=== PATIENT | female | born 1945 | race Caucasian/White ===

== ENCOUNTER 2018-04-20 12:47 | Inpatient (IN) ==
[2018-04-20] MEDS ORDERED: (Diclofenac Sodium [Voltaren] 1 APPL) TP PRN (17:45)
[2018-04-20] MEDS ORDERED: *HR* Heparin 5,000 UNIT/ML VIAL SQ SCH (18:00)
[2018-04-20] MEDS: *HR* LORazepam 1 MG TABLET PO PRN (18:27)
[2018-04-20] MEDS: *HR* OxyCODONE/APAP 7.5/325 TABLET PO PRN (18:28)
[2018-04-20] MEDS ORDERED: *HR* OxyCODONE/APAP 7.5/325 TABLET PO SCH (20:00)
[2018-04-20] MEDS: Ibuprofen 200 MG TABLET PO PRN (21:22)
[2018-04-20] MEDS: Latanoprost 2.5 ML BOTTLE LEFT EYE SCH (21:27)
[2018-04-21] MEDS: *HR* OxyCODONE/APAP 7.5/325 TABLET PO PRN ×2 (04:50→08:27)
[2018-04-21] MEDS: Ibuprofen 200 MG TABLET PO PRN (08:25)
[2018-04-21] MEDS: *HR* LORazepam 1 MG TABLET PO PRN ×2 (08:25→21:22)
[2018-04-21] MEDS: Multivit/Ca/Min/Fe/FA 1 TAB TABLET PO SCH (08:28)
[2018-04-21] MEDS: *HR* Heparin 5,000 UNIT/ML VIAL SQ SCH ×2 (08:28→21:22)
[2018-04-21 08:39] LABS: Basophils # 0.1 K/mcL (0.0-0.2); Basophils % 0.6 %; Eosinophils # 0.4 K/mcL (0.0-0.6); Eosinophils % 3.7 %; Hematocrit 36.8 % (35.3-44.9); Immature Granulocytes % 0.7 % (0-4); Lymphocytes # 2.1 K/mcL (0.6-4.6); Lymphocytes % 21.3 %; Mean Corpuscular HGB Conc 32.6 g/dL (31.6-35.5); Mean Corpuscular Hemoglobin 30.6 pg (28.0-33.3); Mean Corpuscular Volume 93.9 fL (83.0-100.0); Mean Platelet Volume 10.6 fL (9.4-12.4); Monocytes # 0.8 K/mcL (0.0-1.3); Monocytes % 8.1 %; Neutrophils # 6.4 K/mcL (1.6-8.9); Platelet Count 259 K/mcL (140-400); Red Blood Count 3.92 M/mcL (3.82-4.97); Red Cell Distribution Width 12.7 % (11.5-14.5); Segmented Neutrophils % 65.6 %
[2018-04-21 08:41] LABS: BUN/Creatinine Ratio 18 (6-26); Blood Urea Nitrogen 13 mg/dL (8-23); Calcium 9.7 mg/dL (8.6-10.3); Carbon Dioxide 22 mEq/L (23-29); Chloride 101 mEq/L (98-107); Glucose 115 mg/dL (70-105); Osmolality,Calculated 281 (280-300); Potassium 3.7 mEq/L (3.5-5.1); Sodium 135 mEq/L (136-145); eGFR For African Americans > 60 (> 60); eGFR For Non-African Americans > 60 (> 60)
[2018-04-21 08:47] LABS: INR 1.2; Prothrombin Time 12.9 Seconds (9.4-12.1)
[2018-04-21 08:49] LABS: Activated Partial Thrombo Time 50.3 Seconds (26.0-36.0)
[2018-04-21] MEDS ORDERED: tiZANidine 4 MG TABLET PO PRN (11:56)
--- NOTE | 2018-04-21 12:04 | Internal Med History&Physical ---
Date of Encounter: 04/21/18 Time of Encounter: 11:20 Assessment and Plan (1) Status post lumbar spinal fusion Current visit: No Status: Acute We will proceed with therapies, returned to function as possible. Because of her risk of DVT, will use only heparin subcutaneous, as she is 3 days out from surgery upon admission. In addition, will have her take tizanidine for spasm and see if that helps. Because she was on 7.5 of oxycodone at home, will increase her dose, transiently. (2) Fibromyalgia Current visit: Yes Status: Acute Chronic and apparently at baseline. (3) Glaucoma, left eye Current visit: Yes Status: Acute Qualifiers: Glaucoma type: unspecified Qualified Code(s): H40.9 - Unspecified glaucoma (4) GERD (gastroesophageal reflux disease) Current visit: Yes Status: Acute We will continue home medications. Symptomatic treatment, as needed Qualifiers: Esophagitis presence: without esophagitis Qualified Code(s): K21.9 - Gastro -esophageal reflux disease without esophagitis (5) Status post total left knee replacement Current visit: Yes Status: Acute Apparently, stable. (6) COPD (chronic obstructive pulmonary disease) Current visit: Yes Status: Acute As above, patient carries this diagnosis but it is questionable. No current findings or issues. Qualifiers: COPD type: unspecified COPD Qualified Code(s): J44.9 - Chronic obstructive pulmonary disease, unspecified Internal Medicine - H&P: HPI Admitted From: Hospital to Hospital Transfer Plans for Post Hospital Care: Home History of present illness: Ms. Sands is a 72 year old female who has had left knee pain for over a year. She had left total knee replacement in February 2017 but this really did not help her symptoms, adequately. She was found to have lumbar stenosis and nerve impingement. For this reason, she underwent steroid injections which failed to relieve her symptoms. With this in mind, she underwent lumbar sacral repair and is here for physical therapy, rehabilitation to return to function. She was noted to be using Percocet 7.5/325, 1 every 4 hours at home, prior to surgery. She states that her pain is severe in her low back, often reaching 9 or 10. Spasm will involve her low back and comes, with pain often in 8-10 range. The left knee is better often in the 4/10 range. He denies bladder problems prior to surgery. However, she has urinary frequency, postoperatively. She has had intermittent constipation and diarrhea for several months prior to surgery. This is persistent as constipation, postoperatively. She has not had a bowel movement since before surgery. Melanoma which is to be evaluated but has been concerned about getting her spine taking care of, first. This is unchanged, recently. She knows of no associated anemia, lightheadedness or dizziness, etc. Past Med Surg Social Fam HX - Past Medical History Source: patient, old records reviewed Medical history: COPD, GERD, glaucoma, TIA Additional medical history: fibromyalgia Psychiatric history: anxiety, depression - Past Surgical History Surgical History: cataract, hysterectomy Additional surgical history: lowback. right fibula. left knee repl - Social History Smoking Status: Never smoker Smokeless Tobacco Status: No Alcohol use: none Drug use: none - Family History Sister Hx Family Respiratory Disorders: Yes (COPD) Father Hx Family Respiratory Disorders: Yes (COPD) Internal Medicine - H&P: Meds Duloxetine HCl [Cymbalta] 60 mg PO DAILY 09/14/17 [History] LORazepam [Ativan] 1 mg PO BID PRN 09/14/17 [History] Latanoprost [Xalatan] 1 drop LEFT EYE HS 09/14/17 [History] Pantoprazole Sodium 40 mg PO DAILY 09/14/17 [History] Diclofenac Sodium [Voltaren] 1 appl TP DAILY PRN 04/17/18 [History] Ibuprofen [Motrin Ib] 200 mg PO DAILY PRN 04/17/18 [History] Mv,Calcium,Min/Iron/Folic/Vitk [Multi For Her Tablet] 1 tab PO DAILY 04/17/18 [ History] OxyCODONE/APAP 7.5/325 [Percocet 7.5/325 MG] 1 tab PO QID 04/17/18 [History] Simvastatin [Zocor] 20 mg PO QPM 04/17/18 [History] OxyCODONE/APAP 7.5/325 [Percocet 7.5/325 MG] 1 each PO Q6HR PRN 3 Days #12 tablet 04/20/18 [Rx] 3 Allergy/AdvReac Type Severity Reaction Status Date / Time ciprofloxacin [From Cipro] AdvReac Swelling Verified 04/17/18 07:22 of Lip/Tongue/Throat Sulfa (Sulfonamide AdvReac Itching Verified 04/17/18 07:22 Antibiotics) All Systems PM: She has glaucoma involving her left eye and takes nightly drops for same. She is edentulous and wears full upper and lower plate dentures. She has frequent urinary tract infections but has no recent urinary burning. She has noted urinary frequency, as above. COPD was diagnosed in [place] but a [facility] it applications analyst said this diagnosis is in question. The patient has a 40 packher smoking history but has not smoked for at least 18 years. Patient has no complaint of chest discomfort, dyspnea, orthopnea, breathing problems, palpitations, nausea or vomiting, constipation or diarrhea, other changes in bowel habits, heartburn, difficulty with urination, kidney problems or kidney stones, fevers chills or sweats, rash or itching, seizures, headache or lightheadedness, heat or cold intolerance, blood problems or anemia, or other new complaints, except as mentioned above. Review of systems is otherwise negative. - Constitutional Vitals: Temp Pulse Resp BP Pulse Ox 98.3 F 90 19 147/81 95 04/21/18 08:00 04/21/18 08:00 04/21/18 08:00 04/21/18 08:00 04/21/18 08:00 Exam: Examination: (Except as mentioned above): General: In no apparent distress, alert and oriented 3. Head: Atraumatic and normocephalic. Eyes: Extraocular muscles are intact, pupils equal round and reactive to light and accommodation. Sclerae anicteric. Ears: External ears are normal to inspection and hearing is grossly normal. Nose: Patent without lesion noted. Mouth: No intraoral lesions seen. Dentition is remarkable for upper and lower plate dentures. Neck: Supple with trachea midline. There is no thyromegaly or adenopathy and carotids are 2+ without bruit heard. Respiratory: No use of accessory muscles. Lungs are clear throughout. Normal airflow. Cardiovascular: Regular rate and rhythm without murmur appreciated. Abdomen: Bowel sounds are normal. No hepatosplenomegaly masses or tenderness. Obese and therefore difficult to palpate deeply. She is wearing a spine support brace. Extremities: No cyanosis clubbing or edema. Neurological: A and O 3. Cranial nerves II through XII are intact. No focal deficits and no abnormal movements or postures. Skin: Warm and non-diaphoretic with no lesions noted. Breasts, pelvic and rectal: Not examined. Internal Med - H&P Results - Labs CBC & Chem 7: 04/21/18 08:21 04/21/18 08:21 Labs: Short CBC 04/21/18 Range/Units 08:21 WBC 9.8 (4.3-11.1) K/mcL Hgb 12.0 (11.5-15.4) g/dL Hct 36.8 (35.3-44.9) % Plt Count 259 (140-400) K/mcL Neutrophils # 6.4 (1.6-8.9) K/mcL BMP 04/21/18 08:21 Sodium 135 L Potassium 3.7 Chloride 101 Carbon Dioxide 22 L BUN 13 Creatinine 0.74 Glucose 115 H Calcium 9.7
[2018-04-21] MEDS: tiZANidine 4 MG TABLET PO SCH ×3 (12:50→21:28)
[2018-04-21] MEDS: *HR* OxyCODONE/APAP 10/325 TABLET PO PRN ×2 (12:50→17:13)
[2018-04-21] MEDS: Sennosides 8.6 MG TABLET PO SCH (21:22)
[2018-04-21] MEDS: Latanoprost 2.5 ML BOTTLE LEFT EYE SCH (21:27)
[2018-04-22] MEDS: *HR* OxyCODONE/APAP 10/325 TABLET PO PRN ×3 (04:33→17:16)
[2018-04-22] MEDS: Sennosides 8.6 MG TABLET PO SCH ×2 (07:49→19:41)
[2018-04-22] MEDS: *HR* Heparin 5,000 UNIT/ML VIAL SQ SCH ×2 (07:49→19:40)
[2018-04-22] MEDS: Multivit/Ca/Min/Fe/FA 1 TAB TABLET PO SCH (07:49)
[2018-04-22] MEDS: tiZANidine 4 MG TABLET PO SCH ×3 (07:49→17:14)
[2018-04-22] MEDS: *HR* LORazepam 1 MG TABLET PO PRN ×2 (07:49→19:41)
[2018-04-22 07:58] LABS: Bilirubin,Urine Negative (Negative); Blood,Urine Negative (Negative); Clarity,Urine Clear (Clear); Color,Urine Yellow (Yellow); Glucose,Urine (UA) Normal (Normal); Ketones,Urine 15 mg/dL (Negative); Leukocyte Esterase,Urine Trace (Negative); Nitrite,Urine Negative (Negative); Protein,Urine Negative (Neg-Trace); Urobilinogen,Urine Normal (Normal)
[2018-04-22 08:17] LABS: Bacteria,Urine Few per hpf (None-Few); Squamous Epithelial Cell,Urine Few per lpf (None-Few)
--- NOTE | 2018-04-22 14:46 | Internal Med Progress Note ---
Date of Encounter: 04/22/18 Time of Encounter: 14:46 - Assessment and plan (1) Status post lumbar spinal fusion Current Visit: No Status: Acute Assessment and plan: Improving and clinically stable. Therapies to resume tomorrow. (2) Fibromyalgia Current Visit: Yes Status: Acute Assessment and plan: Continue current regimen. (3) Glaucoma, left eye Current Visit: Yes Status: Acute Assessment and plan: Clinically stable. Will continue current drop regimen. Qualifiers: Glaucoma type: unspecified Qualified Code(s): H40.9 - Unspecified glaucoma (4) GERD (gastroesophageal reflux disease) Current Visit: Yes Status: Acute Assessment and plan: Clinically stable. We will continue home regimen and follow. Qualifiers: Esophagitis presence: without esophagitis Qualified Code(s): K21.9 - Gastro -esophageal reflux disease without esophagitis (5) Status post total left knee replacement Current Visit: Yes Status: Acute Assessment and plan: Clinically stable. We will continue home regimen and follow. (6) COPD (chronic obstructive pulmonary disease) Current Visit: Yes Status: Acute Assessment and plan: As before, doubt diagnosis. Qualifiers: COPD type: unspecified COPD Qualified Code(s): J44.9 - Chronic obstructive pulmonary disease, unspecified - Subjective Interval history: Patient without complaint. She states that she intermittently wood in the lower pelvic area but this is not necessarily associated with urination. She denies fevers or chills. No other acute complaints. Resting upon my arrival. Patient has no complaint of chest discomfort, dyspnea, orthopnea, palpitations, nausea or vomiting, constipation or diarrhea, other changes in bowel habits, difficulty with urination, rash or itching, or other new complaints, except as mentioned above. Review of systems is otherwise negative. - Constitutional Vitals: Temp Pulse Resp BP Pulse Ox 98.1 F 61 20 106/75 96 04/22/18 07:45 04/22/18 10:44 04/22/18 07:45 04/22/18 13:30 04/22/18 07:45 Exam: Examination: (Except as mentioned above): General: In no apparent distress. Alert and oriented 3. Nondiaphoretic. Head: Atraumatic and normocephalic. Respiratory: No use of accessory muscles. Lungs are clear throughout. Normal airflow. Cardiovascular: Regular rate and rhythm without murmur appreciated. Abdomen: Bowel sounds are normal. No hepatosplenomegaly mass or tenderness appreciated. Obese and therefore difficult to palpate deeply. Extremities: No cyanosis clubbing or edema. Skin: Warm and non-diaphoretic with no new lesions noted. Internal Medicine: Result - Labs CBC & Chem 7: 04/21/18 08:21 04/21/18 08:21 Labs: Urine 04/21/18 Range/Units 07:24 Urine Color Yellow (Yellow) Urine Clarity Clear (Clear) Urine pH 6.0 (5.0-8.0) pH Units Ur Specific Brandt 1.010 (1.010-1.025) Urine Protein Negative (Neg-Trace) mg/dL Urine Glucose (UA) Normal (Normal) mg/dL - ABG Interpretation ABG results: PT/INR, D-dimer PT 12.9 Seconds (9.4-12.1) H 04/21/18 08:21 Consult Discharge Plan - Plan Referrals: Devi Coyle [Primary Care Provider] -
[2018-04-22] MEDS: Latanoprost 2.5 ML BOTTLE LEFT EYE SCH (19:41)
[2018-04-22] MEDS: Ibuprofen 200 MG TABLET PO PRN (19:41)
[2018-04-23] MEDS: *HR* OxyCODONE/APAP 10/325 TABLET PO PRN ×4 (04:19→20:06)
[2018-04-23 07:26] LABS: Basophils # 0.1 K/mcL (0.0-0.2); Basophils % 0.6 %; Eosinophils # 0.5 K/mcL (0.0-0.6); Eosinophils % 5.7 %; Hematocrit 32.4 % (35.3-44.9); Hemoglobin 10.6 g/dL (11.5-15.4); Immature Granulocytes % 1.2 % (0-4); Lymphocytes # 2.1 K/mcL (0.6-4.6); Lymphocytes % 25.5 %; Mean Corpuscular HGB Conc 32.7 g/dL (31.6-35.5); Mean Corpuscular Hemoglobin 30.7 pg (28.0-33.3); Mean Corpuscular Volume 93.9 fL (83.0-100.0); Mean Platelet Volume 11.2 fL (9.4-12.4); Monocytes # 0.9 K/mcL (0.0-1.3); Neutrophils # 4.6 K/mcL (1.6-8.9); Platelet Count 166 K/mcL (140-400); Red Blood Count 3.45 M/mcL (3.82-4.97); Red Cell Distribution Width 12.7 % (11.5-14.5)
[2018-04-23 07:32] LABS: BUN/Creatinine Ratio 19 (6-26); Blood Urea Nitrogen 14 mg/dL (8-23); Calcium 9.5 mg/dL (8.6-10.3); Carbon Dioxide 25 mEq/L (23-29); Chloride 105 mEq/L (98-107); Glucose 99 mg/dL (70-105); Osmolality,Calculated 285 (280-300); Potassium 3.9 mEq/L (3.5-5.1); Sodium 137 mEq/L (136-145); eGFR For African Americans > 60 (> 60); eGFR For Non-African Americans > 60 (> 60)
[2018-04-23] MEDS: *HR* Heparin 5,000 UNIT/ML VIAL SQ SCH ×2 (08:17→20:05)
[2018-04-23] MEDS: *HR* LORazepam 1 MG TABLET PO PRN (08:17)
[2018-04-23] MEDS: Multivit/Ca/Min/Fe/FA 1 TAB TABLET PO SCH (08:17)
[2018-04-23] MEDS: Sennosides 8.6 MG TABLET PO SCH ×2 (08:17→20:05)
--- NOTE | 2018-04-23 09:24 | Internal Med Progress Note ---
Date of Encounter: 04/23/18 Time of Encounter: 09:20 - Assessment and plan (1) Status post lumbar spinal fusion Current Visit: Yes Status: Acute Assessment and plan: Patient is progressing well. Lumbar surgical wound has dressing dry and intact. Patient states her preoperative radicular symptoms have diminished, but continues with complaints of slight muscle spasm type pain to the left hip area. Patient participating in physical therapy. We will continue with current plan of care. (2) Fibromyalgia Current Visit: Yes Status: Chronic Assessment and plan: Patient continues with complaints of lower back pain but denies generalized discomforts. Patient appears relaxed. We will continue with PT/OT (3) GERD (gastroesophageal reflux disease) Current Visit: Yes Status: Chronic Assessment and plan: No acute issues. Patient was without complaints. We will continue with current plan of care Qualifiers: Esophagitis presence: without esophagitis Qualified Code(s): K21.9 - Gastro -esophageal reflux disease without esophagitis (4) COPD (chronic obstructive pulmonary disease) Current Visit: Yes Status: Chronic Assessment and plan: No acute issues. Lungs are clear throughout. Respiratory effort appears relaxed. We will continue with current plan of care and medications. Qualifiers: COPD type: unspecified COPD Qualified Code(s): J44.9 - Chronic obstructive pulmonary disease, unspecified (5) Anxiety Current Visit: Yes Status: Chronic Assessment and plan: Patient does have complaints of some anxiety throughout the day. Patient currently taking Ativan 1 mg twice a day. Patient states home dosing is 0.5 every 6 hours when necessary. We will change Ativan dosing to patient's home regimen. Patient appears relaxed during exam. - Time Spent With Patient less than 15 minutes - Subjective Interval history: Patient appears relaxed, but states she continues to have some radicular pain down the left hip. Patient states that her radicular symptoms have diminished since her surgery, but continues to have muscle spasm type pain in her left hip and low back, which increases during mobility denies any other acute neurological deficits. Patient also complains of some anxiety throughout the day. States that her current Ativan dosing and time are different from what she takes at home, in which she takes 0.5 mg every 6 hours when necessary. - Constitutional Vitals: Temp Pulse Resp BP Pulse Ox 97.9 F 94 18 112/73 94 04/23/18 07:58 04/23/18 09:13 04/23/18 07:58 04/23/18 09:13 04/23/18 07:58 General appearance: Present: A&O X 3 - Head Head exam: Present: atraumatic, normocephalic - Eye Eye exam: Present: PERRL, conjuntiva pink, sclera anicteric Pupils: Present: PERRL - Neck Neck exam general surgery: Present: supple, trachea midline. Absent: lymphadenopathy - Respiratory Respiratory exam: Present: CTAB. Absent: accessory muscle use, rales, rhonchi, wheezes - Cardiovascular Cardiovascular exam: Present: RRR, +S1, +S2. Absent: diastolic murmur, gallop, rubs, systolic murmur - GI/Abdominal GI/Abdominal exam: Present: normal bowel sounds, soft, no peritoneal signs. Absent: distended, tenderness - Extremities Exam Extremities exam: Present: warm, radial pulses palpable and symmetrical. Absent : calf tenderness, cyanotic, pedal edema - Back Exam Back exam: Present: muscle spasm, normal inspection Additional comments: Dressing to lower lumbar area is dry and intact. No ecchymosis or edema noted. Patient denies any tenderness to lower back, but does state some tenderness to left hip area during palpation - Neurological Exam Neurological exam: Present: CN II-XII intact, oriented X3, no focal deficits. Absent: pronater drift, facial droop, speech deficit Additional comments: Complaint of lower back and left hip muscle spasm type radicular symptoms. No other focal neurological deficits noted on exam - Skin Skin exam: Present: dry, intact Internal Medicine: Result - Labs CBC & Chem 7: 04/23/18 07:14 04/23/18 07:14 Labs: Short CBC 04/23/18 Range/Units 07:14 WBC 8.1 (4.3-11.1) K/mcL Hgb 10.6 L (11.5-15.4) g/dL Hct 32.4 L (35.3-44.9) % Plt Count 166 (140-400) K/mcL Neutrophils # 4.6 (1.6-8.9) K/mcL BMP 04/23/18 07:14 Sodium 137 Potassium 3.9 Chloride 105 Carbon Dioxide 25 BUN 14 Creatinine 0.73 Glucose 99 Calcium 9.5 - ABG Interpretation ABG results: PT/INR, D-dimer PT 12.9 Seconds (9.4-12.1) H 04/21/18 08:21 Consult Discharge Plan - Plan Referrals: Devi Coyle [Primary Care Provider] -
[2018-04-23] MEDS ORDERED: tiZANidine 4 MG TABLET PO PRN (12:13)
--- NOTE | 2018-04-23 14:20 | Physcial Medicine-Consult Note ---
Date of Encounter: 04/23/18 Time of Encounter: 14:17 Physical Medicine - AP (1) Status post lumbar spinal fusion Status: Acute Assessment and plan: Good progress in therapies. Pain management fair. [facility] 04-25-2018 Code(s): Z98.1 - Arthrodesis status SNOMED Code(s): 21878575291572 Physical Medicine - HPI - Data of Consult Requesting Physician: Reji Pena MD Primary Care Provider: Devi Coyle - Consult Narrative History of present illness: Ms. Sands is a 72 year old RH female s/p L3-L4 revision of a previous fusion 04-17-2018. Admitted to [facility] 04-20-2018. CC: Reji Pena MD Past Med Surg Social Fam HX - Past Medical History Attestation: Yes The following information was validated with the patient. Medical history: COPD, GERD, glaucoma, TIA Additional medical history: fibromyalgia Psychiatric history: anxiety, depression - Past Surgical History Surgical History: cataract, hysterectomy Additional surgical history: lowback. right fibula. left knee repl - Social History Smoking Status: Never smoker Smokeless Tobacco Status: No Alcohol use: none Drug use: none - Family History Sister Hx Family Respiratory Disorders: Yes (COPD) Father Hx Family Respiratory Disorders: Yes (COPD) Medications and Allergies Duloxetine HCl [Cymbalta] 60 mg PO DAILY 09/14/17 [History] LORazepam [Ativan] 1 mg PO BID PRN 09/14/17 [History] Latanoprost [Xalatan] 1 drop LEFT EYE HS 09/14/17 [History] Pantoprazole Sodium 40 mg PO DAILY 09/14/17 [History] Diclofenac Sodium [Voltaren] 1 appl TP DAILY PRN 04/17/18 [History] Ibuprofen [Motrin Ib] 200 mg PO DAILY PRN 04/17/18 [History] Mv,Calcium,Min/Iron/Folic/Vitk [Multi For Her Tablet] 1 tab PO DAILY 04/17/18 [ History] OxyCODONE/APAP 7.5/325 [Percocet 7.5/325 MG] 1 tab PO QID 04/17/18 [History] Simvastatin [Zocor] 20 mg PO QPM 04/17/18 [History] OxyCODONE/APAP 7.5/325 [Percocet 7.5/325 MG] 1 each PO Q6HR PRN 3 Days #12 tablet 04/20/18 [Rx] 3 Allergy/AdvReac Type Severity Reaction Status Date / Time ciprofloxacin [From Cipro] AdvReac Swelling Verified 04/17/18 07:22 of Lip/Tongue/Throat Sulfa (Sulfonamide AdvReac Itching Verified 04/17/18 07:22 Antibiotics) All systems: reviewed and no additional remarkable complaints except as stated ( Post operative low back pain.) Physical Medicine - Exam - Constitutional Vitals: Temp Pulse Resp BP Pulse Ox 97.9 F 94 18 122/72 94 04/23/18 07:58 04/23/18 09:13 04/23/18 07:58 04/23/18 14:14 04/23/18 07:58 General appearance: average body habitus, cooperative, no acute distress - Head Head exam: Present: atraumatic, normocephalic - Eye Eye exam: Present: EOMI - ENT ENT exam: Present: mucous membranes moist - Neck Neck exam: Present: full ROM - Respiratory Respiratory exam: Present: CTAB - Cardiovascular Cardiovascular exam: Present: RRR - GI/Abdominal GI/Abdominal exam: Present: normal bowel sounds, soft - Extremities Exam Extremities exam: Present: full ROM, normal inspection Additional comments: Strength 4=/5 BLEs. - Back Exam Additional comments: Lumbar incision. - Neurological Exam Neurological exam: Present: abnormal gait, alert, CN II-XII intact, oriented X3 , strengths equal and symetr throughout. Absent: reflexes normal - Psychiatric Psychiatric exam: Present: anxious - Skin Skin exam: Present: dry, warm Physical Medicine - Results - Labs CBC & Chem 7: 04/23/18 07:14 04/23/18 07:14 Labs: Short CBC 04/23/18 Range/Units 07:14 WBC 8.1 (4.3-11.1) K/mcL Hgb 10.6 L (11.5-15.4) g/dL Hct 32.4 L (35.3-44.9) % Plt Count 166 (140-400) K/mcL Neutrophils # 4.6 (1.6-8.9) K/mcL BMP 04/23/18 07:14 Sodium 137 Potassium 3.9 Chloride 105 Carbon Dioxide 25 BUN 14 Creatinine 0.73 Glucose 99 Calcium 9.5 Anemia Consult Discharge Plan - Plan Referrals: Devi Coyle [Primary Care Provider] -
[2018-04-23] MEDS: Nitrofurantoin (BID) 100 MG CAPSULE PO SCH (17:06)
[2018-04-23] MEDS: Ibuprofen 200 MG TABLET PO PRN (17:54)
[2018-04-23] MEDS: tiZANidine 4 MG TABLET PO PRN (18:43)
[2018-04-23] MEDS: *HR* LORazepam 0.5 MG TABLET PO PRN (20:05)
[2018-04-23] MEDS: Latanoprost 2.5 ML BOTTLE LEFT EYE SCH (20:05)
[2018-04-24] MEDS: *HR* LORazepam 0.5 MG TABLET PO PRN ×3 (05:38→20:02)
[2018-04-24] MEDS: *HR* OxyCODONE/APAP 10/325 TABLET PO PRN ×4 (05:43→20:03)
[2018-04-24] MEDS: tiZANidine 4 MG TABLET PO PRN (08:28)
[2018-04-24] MEDS: Nitrofurantoin (BID) 100 MG CAPSULE PO SCH ×2 (08:28→18:01)
[2018-04-24] MEDS: Ibuprofen 200 MG TABLET PO PRN (08:28)
[2018-04-24] MEDS: Multivit/Ca/Min/Fe/FA 1 TAB TABLET PO SCH (08:28)
[2018-04-24] MEDS: Sennosides 8.6 MG TABLET PO SCH ×2 (08:29→19:42)
[2018-04-24] MEDS: *HR* Heparin 5,000 UNIT/ML VIAL SQ SCH ×2 (08:29→20:02)
--- NOTE | 2018-04-24 09:24 | Internal Med Progress Note ---
Date of Encounter: 04/24/18 Time of Encounter: 09:20 - Assessment and plan (1) Status post lumbar spinal fusion Current Visit: Yes Status: Acute Assessment and plan: Patient is progressing well. Lumbar surgical wound has dressing dry and intact. Patient states her preoperative radicular symptoms have diminished, but continues with complaints of slight muscle spasm type pain to the left hip area. Patient participating in physical therapy. We will continue with current plan of care. Plan for DC to home with HH tomorrow. (2) Fibromyalgia Current Visit: Yes Status: Chronic Assessment and plan: Patient continues with complaints of lower back pain but denies generalized discomforts. Patient appears relaxed. We will continue with PT/OT (3) GERD (gastroesophageal reflux disease) Current Visit: Yes Status: Chronic Assessment and plan: No acute issues. Patient was without complaints. We will continue with current plan of care Qualifiers: Esophagitis presence: without esophagitis Qualified Code(s): K21.9 - Gastro -esophageal reflux disease without esophagitis (4) COPD (chronic obstructive pulmonary disease) Current Visit: Yes Status: Chronic Assessment and plan: No acute issues. Lungs are clear throughout. Respiratory effort appears relaxed. We will continue with current plan of care and medications. Qualifiers: COPD type: unspecified COPD Qualified Code(s): J44.9 - Chronic obstructive pulmonary disease, unspecified (5) Anxiety Current Visit: Yes Status: Chronic Assessment and plan: Patient appears relaxed and denies any current issues. Will continue with current meds. - Time Spent With Patient less than 15 minutes - Subjective Interval history: Patient appears relaxed, but states she continues to have some radicular pain down the left hip, but that her radicular symptoms have diminished since her surgery. Describes the pain as a muscle spasm type pain, but states that her pain is well controlled with current pain regimen ordered. States that PT/OT has been going well and reports are that she has progressed well. Preparing for DC to home in morning with Home Health. - Constitutional Vitals: Temp Pulse Resp BP Pulse Ox 97.9 F 79 16 125/60 94 04/24/18 06:48 04/24/18 06:48 04/24/18 06:48 04/24/18 06:48 04/24/18 06:48 General appearance: Present: A&O X 3 - Head Head exam: Present: atraumatic, normocephalic - Eye Eye exam: Present: PERRL, conjuntiva pink, sclera anicteric Pupils: Present: PERRL - Neck Neck exam general surgery: Present: supple, trachea midline. Absent: lymphadenopathy - Respiratory Respiratory exam: Present: CTAB. Absent: accessory muscle use, rales, rhonchi, wheezes - Cardiovascular Cardiovascular exam: Present: RRR, +S1, +S2. Absent: diastolic murmur, gallop, rubs, systolic murmur - GI/Abdominal GI/Abdominal exam: Present: normal bowel sounds, soft, no peritoneal signs. Absent: distended, tenderness - Extremities Exam Extremities exam: Present: warm, radial pulses palpable and symmetrical. Absent : calf tenderness, cyanotic, pedal edema - Back Exam Back exam: Present: muscle spasm Additional comments: Lumbar surgical wound remains dry and intact with drsg in place. - Neurological Exam Neurological exam: Present: CN II-XII intact, oriented X3, no focal deficits. Absent: pronater drift, facial droop, speech deficit - Skin Skin exam: Present: dry, intact Internal Medicine: Result - Labs CBC & Chem 7: 04/23/18 07:14 04/23/18 07:14 - ABG Interpretation ABG results: PT/INR, D-dimer PT 12.9 Seconds (9.4-12.1) H 04/21/18 08:21 Consult Discharge Plan - Plan Referrals: Devi Coyle [Primary Care Provider] -
--- NOTE | 2018-04-24 10:30 | Discharge Summary ---
Orders not resulted at time of discharge: Pending orders 04/30/18 04:00 Basic Metabolic Panel MO Complete Blood Count [HEME] MO Date of Encounter: 04/25/18 Time of Encounter: 09:00 - Discharge Diagnosis (1) Status post lumbar spinal fusion Priority: Primary Status: Acute Comments: Patient had a L3-L4 redo lumbar laminectomy/fusion. Progressed well with PT/OT [facility] Will continue with f/u with Surgeon. Wound appears healthy. Continue with PT/OT by home health. Patient with c/o slight muscle spasms, mostly to her left hip. States pain well managed with current meds. Continue on medications at home. (2) Fibromyalgia Priority: Secondary Status: Chronic Comments: Pain well controlled during stay at rehab facility. Continue on current home meds. F/u with PCP. (3) GERD (gastroesophageal reflux disease) Priority: Secondary Status: Chronic Comments: No acute issues. Continue on current meds. Qualifiers: Esophagitis presence: without esophagitis Qualified Code(s): K21.9 - Gastro -esophageal reflux disease without esophagitis (4) COPD (chronic obstructive pulmonary disease) Priority: Secondary Status: Chronic Comments: Lungs CTA. No issues during stay. Continue on current meds and f/u with PCP. Qualifiers: COPD type: unspecified COPD Qualified Code(s): J44.9 - Chronic obstructive pulmonary disease, unspecified (5) Anxiety Priority: Secondary Status: Chronic Comments: No acute issues. Patient continued on home meds. F/u with PCP. Hospital course: Ms. Sands is a 72 year old female who experienced lumbar radicular symptoms and failed conservative treatments. Patient had a redo L3-L4 walker/fusion and had an uneventful recovery in hospital. Patient was transferred to Rehab and continued to recover and progress well. Postoperative pain consisted of c/o muscle spasms, which was controlled with current pain meds. Surgical wound remains healthy. Progressing well with PT/OT. Ridge continue rehab at home with Home Health. Discharge discussed with: patient Time spent discussing smoking cessation with patient: 3 to 10 minutes - Time Spent with Patient Total time spent providing and/or coordinating discharge services: Less than 30 minutes - Discharge Medications Home Medications: Duloxetine HCl [Cymbalta] 60 mg PO DAILY 09/14/17 [History] LORazepam [Ativan] 1 mg PO BID PRN 09/14/17 [History] Latanoprost [Xalatan] 1 drop LEFT EYE HS 09/14/17 [History] Pantoprazole Sodium 40 mg PO DAILY 09/14/17 [History] Diclofenac Sodium [Voltaren] 1 appl TP DAILY PRN 04/17/18 [History] Ibuprofen [Motrin Ib] 200 mg PO DAILY PRN 04/17/18 [History] Mv,Calcium,Min/Iron/Folic/Vitk [Multi For Her Tablet] 1 tab PO DAILY 04/17/18 [ History] OxyCODONE/APAP 7.5/325 [Percocet 7.5/325 MG] 1 tab PO QID 04/17/18 [History] Simvastatin [Zocor] 20 mg PO QPM 04/17/18 [History] OxyCODONE/APAP 7.5/325 [Percocet 7.5/325 MG] 1 each PO Q6HR PRN 3 Days #12 tablet 04/20/18 [Rx] Allergies/Adverse Reactions: 3 Allergy/AdvReac Type Severity Reaction Status Date / Time ciprofloxacin [From Cipro] AdvReac Swelling Verified 04/17/18 07:22 of Lip/Tongue/Throat Sulfa (Sulfonamide AdvReac Itching Verified 04/17/18 07:22 Antibiotics) Date of admission: 04/20/18 16:54 Primary care physician: Devi Coyle Consults: 04/20/18 17:32 Consult to Physical Medicine/Rehab [CONS] Routine Reason for Consult: s/p lumbar fusion Call Completed: No 04/20/18 17:33 Consult to Occupational Therapy [CONS] Routine Comment: Evaluate, develop and implement POC Reason for Consult: s/p lumbar fusion Does patient have active BEDREST order?: Yes Is patient medically & hemodynamically stable?: Yes Patient assessed for mobility or mobilized this visit?: No Consult to Physical Therapy [CONS] Routine Comment: Evaluate, develop and implement POC Reason for Consult: s/p lumbar fusion Does patient have active BEDREST order?: No Is patient medically & hemodynamically stable?: Yes Patient assessed for mobility or mobilized this visit?: No Consult to Recreational Therapy [CONS] Routine Comment: Evaluate, develop and implement POC Consult to Wrapping Checker [CONS] Routine Reason for SW Consult: d/c planning, potential for f/u care Discharging clinician: Reji Pena Anticipated date of discharge: 04/25/18 - Constitutional Vitals: Temp Pulse Resp BP Pulse Ox 97.9 F 79 16 125/60 94 04/24/18 06:48 04/24/18 06:48 04/24/18 06:48 04/24/18 06:48 04/24/18 06:48 General appearance: Present: A&O X 3 - Head Head exam: Present: atraumatic, normocephalic - Eye Eye exam: Present: PERRL, conjuntiva pink, sclera anicteric Pupils: Present: PERRL - Neck Neck exam general surgery: Present: supple, trachea midline. Absent: lymphadenopathy - Respiratory Respiratory exam: Present: CTAB. Absent: accessory muscle use, rales, rhonchi, wheezes - Cardiovascular Cardiovascular exam: Present: RRR, +S1, +S2. Absent: diastolic murmur, gallop, rubs, systolic murmur - GI/Abdominal GI/Abdominal exam: Present: normal bowel sounds, soft, no peritoneal signs. Absent: distended, tenderness - Extremities Exam Extremities exam: Present: warm, radial pulses palpable and symmetrical. Absent : calf tenderness, cyanotic, pedal edema - Back Exam Back exam: Present: muscle spasm Additional comments: Lumbar surgical wound appears dry and intact. No edema or tenderness on palpation. - Neurological Exam Neurological exam: Present: CN II-XII intact, oriented X3, no focal deficits. Absent: pronater drift, facial droop, speech deficit - Skin Skin exam: Present: dry, intact - Patient Status Disposition: Home Health Service Condition: Good Functional capacity at discharge: uses cane/walker Overall status at discharge: patient is progressing back to baseline - Discharge Instructions Follow Up With: Devi Coyle [Primary Care Provider] - - Diet and Activity Activity: ambulate only with your walker, as per physical therapy, resume usual activities as tolerated Diet: advance to your usual diet
--- NOTE | 2018-04-24 16:00 | Physician Discharge Referral ---
<Josesito Bradley R - Last Filed: 04/25/18 09:01> - Diagnosis (1) Status post lumbar spinal fusion Status: Acute (2) Fibromyalgia Status: Chronic (3) GERD (gastroesophageal reflux disease) Status: Chronic (4) COPD (chronic obstructive pulmonary disease) Status: Chronic (5) Anxiety Status: Chronic - Respiratory Orders Smoking Cessation: Smoking cessation has been advised. For more information, call the [place] Tobacco Quit Line at 6-104-VVGR-NOW. - Transfer Medications Home Medications: Duloxetine HCl [Cymbalta] 60 mg PO DAILY 09/14/17 [History] LORazepam [Ativan] 1 mg PO BID PRN 09/14/17 [History] Latanoprost [Xalatan] 1 drop LEFT EYE HS 09/14/17 [History] Pantoprazole Sodium 40 mg PO DAILY 09/14/17 [History] Diclofenac Sodium [Voltaren] 1 appl TP DAILY PRN 04/17/18 [History] Ibuprofen [Motrin Ib] 200 mg PO DAILY PRN 04/17/18 [History] Mv,Calcium,Min/Iron/Folic/Vitk [Multi For Her Tablet] 1 tab PO DAILY 04/17/18 [ History] OxyCODONE/APAP 7.5/325 [Percocet 7.5/325 MG] 1 tab PO QID 04/17/18 [History] Simvastatin [Zocor] 20 mg PO QPM 04/17/18 [History] OxyCODONE/APAP 7.5/325 [Percocet 7.5/325 MG] 1 each PO Q6HR PRN 3 Days #12 tablet 04/20/18 [Rx] Allergies/Adverse Reactions: 3 Allergy/AdvReac Type Severity Reaction Status Date / Time ciprofloxacin [From Cipro] AdvReac Swelling Verified 04/17/18 07:22 of Lip/Tongue/Throat Sulfa (Sulfonamide AdvReac Itching Verified 04/17/18 07:22 Antibiotics) Certification: Further, I certify that my clinical findings support that this patient is homebound (i.e. absences from home require considerable and taxing effort and are for medical reasons or confucianist services or infrequently or short duration when for other reasons) because: Attestation: My signature below is to certify that this patient is under my care and that I, or nurse practitioner, or a physician's underwriting assistant working with me, has a face-to -face encounter with this patient. <Reji Pena - Last Filed: 04/25/18 10:58> Home Health/Hosp Referral Info Transfer to: Home Health Provider in Charge Post Discharge: PCP - Diagnosis (1) Status post lumbar spinal fusion Priority: Primary Status: Acute (2) Fibromyalgia Priority: Secondary Status: Chronic (3) Glaucoma, left eye Priority: Secondary Status: Acute (4) GERD (gastroesophageal reflux disease) Status: Chronic (5) Status post total left knee replacement Priority: Secondary Status: Acute (6) COPD (chronic obstructive pulmonary disease) Priority: Secondary Status: Chronic - Respiratory Orders None Smoking Cessation: Smoking cessation has been advised. For more information, call the [place] Tobacco Quit Line at 4-262-RRCSNOW. - Diet/Nutrition Diet/Nutrition Orders: Regular - Activity Activity Orders: Walker - Services Needed Following services are medically necessary services: Nursing, Physical Therapy, Occupational Therapy Certification: Further, I certify that my clinical findings support that this patient is homebound (i.e. absences from home require considerable and taxing effort and are for medical reasons or confucianist services or infrequently or short duration when for other reasons) because: Homebound Reason: Leaving home requires considerable and taxing effort due to condition Attestation: My signature below is to certify that this patient is under my care and that I, or nurse practitioner, or a physician's underwriting assistant working with me, has a face-to -face encounter with this patient.
[2018-04-24] MEDS: Latanoprost 2.5 ML BOTTLE LEFT EYE SCH (20:02)
[2018-04-25] MEDS: *HR* LORazepam 0.5 MG TABLET PO PRN (04:45)
[2018-04-25] MEDS: *HR* OxyCODONE/APAP 10/325 TABLET PO PRN ×2 (04:46→11:23)
[2018-04-25 07:50] VITALS: BP 137/79
[2018-04-25] MEDS: Sennosides 8.6 MG TABLET PO SCH (07:54)
[2018-04-25] MEDS: Nitrofurantoin (BID) 100 MG CAPSULE PO SCH (07:55)
[2018-04-25] MEDS: Multivit/Ca/Min/Fe/FA 1 TAB TABLET PO SCH (07:55)
[2018-04-25] MEDS: Ibuprofen 200 MG TABLET PO PRN (07:55)
[2018-04-25] MEDS: tiZANidine 4 MG TABLET PO PRN (07:55)
[2018-04-25] MEDS: *HR* Heparin 5,000 UNIT/ML VIAL SQ SCH (07:55)
--- NOTE | 2018-04-25 09:32 | Event Note ---
Date of Encounter: 04/25/18 Time of Encounter: 09:30 No acute changes overnight. Patient remains without complaints. Continues with plan for DC this morning and continue with PT/OT at home.
== END 2018-04-25 11:40 | disposition home health service (06) | DRG 950 ==
LOC: INPGRE 16:54